=== PATIENT | female | born 1935 | race Caucasian/White ===

== ENCOUNTER 2017-11-30 08:46 | Observation (INO) | payer MEDICARE ==
[2017-11-30] MEDS: Albuterol-Ipratrop 3 mg / 0.5 (3 ml) UD IH SCH ×3 (09:45→10:35)
[2017-11-30] MEDS ORDERED: Albuterol-Ipratrop 3 mg / 0.5 (3 ml) UD ONE (10:17)
[2017-11-30 10:58] LABS: BASO % 0.7 % (0.0-2.0); EOS % 0.3 % (0.0-4.0); HEMOGLOBIN 11.4 g/dL (12.0-16.0); LYMPH # 0.9 K/uL (1.0-4.3); LYMPH % 12.4 % (20.0-40.0); MEAN CELL VOLUME 59.8 fl (81.0-99.0); MEAN CORPUSCULAR HEMOGLOBIN 18.6 pg (27.0-31.0); MEAN CORPUSCULAR HGB CONC 31.2 g/dL (33.0-37.0); MEAN PLATELET VOLUME 9.3 fl (7.2-11.7); MONO # 1.2 K/uL (0.0-0.8); MONO % 16.2 % (0.0-10.0); NEUT # 5.2 K/uL (1.8-7.0); NEUT % 70.4 % (50.0-75.0); NRBC % 0.2 % (0.0-0.0); RBC 6.12 Mil/uL (3.80-5.20); RED CELL DISTRIBUTION WIDTH 18.3 % (11.5-14.5); WHITE BLOOD COUNT 7.3 K/uL (4.8-10.8)
[2017-11-30 11:11] LABS: BLOOD UREA NITROGEN 18 mg/dl (7-17); GFR AFRICAN-AMERICAN > 60; GFR NON-AFRICAN AMERICAN 60; MAGNESIUM 2.2 MG/DL (1.6-2.3)
--- NOTE | 2017-11-30 11:13 | RAD ---
HISTORY: Cough. Rule out pneumonia COMPARISON: No prior study available comparison FINDINGS: LUNGS: Ill-defined perihilar opacity with left lower lobe atelectasis and/or scarring changes however developing infiltrates could be excluded with followup radiographs. . . PLEURA: No significant pleural effusion identified, no pneumothorax apparent. CARDIOVASCULAR: Normal. OSSEOUS STRUCTURES: No significant abnormalities. VISUALIZED UPPER ABDOMEN: Normal. OTHER FINDINGS: None. IMPRESSION: Ill-defined perihilar opacity with left lower lobe atelectasis and/or scarring changes however developing infiltrates could be excluded with followup radiographs. . .
[2017-11-30 11:23] LABS: B-TYPE NATRIURETIC PEPTIDE 2910 pg/ml (0-900)
--- NOTE | 2017-11-30 12:24 | ED PDOC ---
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 Patient reports symptoms are worse with exertion. Patient reports nasal congestion, but no fever. Patient was recently discharged (From [facility]) on the 28 of November for Pneumonia. Patient was in Subacute Rehab for 1 and a half hours, but reports symptoms have been getting worse. PMD: Isaiah Mendoza Past Medical History Vital Signs: Last Vital Signs Temp 99.2 F 11/30/17 16:16 Pulse 58 L 11/30/17 17:22 Resp 20 11/30/17 16:16 BP 105/59 L 11/30/17 16:16 Pulse Ox 95 11/30/17 17:22 - Medical History PMH: HTN Denies: Chronic Kidney Disease - Family History Family History: States: No Known Family Hx - Immunization History Hx Tetanus Toxoid Vaccination: No Hx Influenza Vaccination: No Hx Pneumococcal Vaccination: No - Home Medications Home Medications: Ambulatory Orders Medication Instructions Recorded ALPRAZolam [Xanax] 0.25 mg PO BID PRN tab 11/27/17 Albuterol/Ipratropium [Duoneb 3 3 ml INH RQ6 neb 11/27/17 mg/0.5 mg (3 ml) UD] Azithromycin [Zithromax] 500 mg PO DAILY #5 tablet 11/27/17 Clopidogrel [Plavix] 75 mg PO DAILY tab 11/27/17 Famotidine [Pepcid] 20 mg PO BID tab 11/27/17 Ferrous Sulfate [Feosol] 325 mg PO BID tab 11/27/17 Montelukast [Singulair] 10 mg PO HS tab 11/27/17 amLODIPine [Norvasc] 10 mg PO DAILY tab 11/27/17 cefTRIAXone [Rocephin] 1 gm IVPB DAILY #5 vial 11/27/17 guaiFENesin/Dextromethorphan 10 ml PO Q6H udc 11/27/17 [Robitussin DM] Atenolol [Tenormin] 100 mg PO BID 11/30/17 - Allergies Allergies/Adverse Reactions: Allergies Allergy/AdvReac Type Severity Reaction Status Date / Time No Known Allergies Allergy Verified 11/30/17 08:59 - Laboratory Results Result Diagrams: 11/30/17 10:50 11/30/17 10:50 - ECG ECG: Positive for: Interpreted By Me, Viewed By Me ECG Rhythm: Positive for: Sinus Bradycardia (with Sinus Arrhythmia) Rate: 58 O2 Sat by Pulse Oximetry: 95 (RA) Medical Decision Making Medical Decision Making: Time: 09:42 Plan: - EKG - B-Type Natriuretic Peptide - BMP - Mangesium - Troponin I - CBC - Portable Chest X-Ray - Duoneb 3 mg/0.5 mg (3 ml) UD - Zofran Inj - Blood Culture - Nebulizer Treatment - Peak Flow Pre/Post Treatment - Influenza A B - Urinalysis Time: 11:11 Chest X-Ray FINDINGS: IMPRESSION: Ill-defined perihilar opacity with left lower lobe atelectasis and/or scarring changes however developing infiltrates could be excluded with followup radiographs. . . Time: 12:25 Patient failed outpatient treatment for COPD. WBC nl. She never completed her subacute rehab. Dr. Caldwell will admit her under his service for Dr. Mendoza for COPD Exacerbation Scribe Attestation: Documented by Garry Zamora, acting as a scribe for Nicho Nolasco DO Provider Scribe Attestation: All medical record entries made by the Scribe were at my direction and personally dictated by me. I have reviewed the chart and agree that the record accurately reflects my personal performance of the history, physical exam, medical decision making, and the department course for this patient. I have also personally directed, reviewed, and agree with the discharge instructions and disposition. Disposition - Clinical Impression Clinical Impression: COPD (chronic obstructive pulmonary disease) - Patient ED Disposition Is Patient to be Admitted: Yes Discussed With Dr.: Jeff Caldwell - Disposition Disposition Time: 12:25 Condition: FAIR - POA Present On Arrival: None
--- NOTE | 2017-11-30 13:55 | CP.PCM.HP ---
Past Patient History - Past Medical History & Family History Past Medical History?: Yes - Past Social History Smoking Status: Former Smoker - CARDIAC Hx Hypertension: Yes - PULMONARY Hx Respiratory Disorders: No - NEUROLOGICAL HX Cerebrovascular Accident: Yes - HEENT Hx HEENT Problems: No - RENAL Hx Chronic Kidney Disease: No - ENDOCRINE/METABOLIC Hx Endocrine Disorders: No - HEMATOLOGICAL/ONCOLOGICAL Hx Blood Disorders: No - INTEGUMENTARY Hx Dermatological Problems: No - MUSCULOSKELETAL/RHEUMATOLOGICAL Hx Musculoskeletal Disorders: No Hx Falls: No - GASTROINTESTINAL Hx Gastrointestinal Disorders: No - GENITOURINARY/GYNECOLOGICAL Hx Genitourinary Disorders: No - PSYCHIATRIC Hx Substance Use: No - SURGICAL HISTORY Hx Surgeries: No - ANESTHESIA Hx Anesthesia: No Meds Allergies/Adverse Reactions: Allergies Allergy/AdvReac Type Severity Reaction Status Date / Time No Known Allergies Allergy Verified 11/30/17 08:59 Results - Vital Signs Recent Vital Signs: Last Vital Signs Temp 98.6 F 11/30/17 08:54 Pulse 76 11/30/17 08:54 Resp 20 11/30/17 08:54 BP 157/65 H 11/30/17 08:54 Pulse Ox 95 11/30/17 13:11 - Labs Result Diagrams: 11/30/17 10:50 11/30/17 10:50 Labs: Laboratory Results - last 24 hr 11/30/17 11/30/17 11/30/17 10:50 10:50 10:50 WBC 7.3 RBC 6.12 H Hgb 11.4 L Hct 36.6 MCV 59.8 L MCH 18.6 L MCHC 31.2 L RDW 18.3 H Plt Count 211 MPV 9.3 Neut % (Auto) 70.4 Lymph % (Auto) 12.4 L [place] % (Auto) 16.2 H Eos % (Auto) 0.3 Baso % (Auto) 0.7 Neut # (Auto) 5.2 Lymph # (Auto) 0.9 L [place] # (Auto) 1.2 H Eos # (Auto) 0.0 Baso # (Auto) 0.0 Sodium 141 Potassium 4.2 Chloride 100 Carbon Dioxide 32 H Anion Gap 13 BUN 18 H Creatinine 0.9 Est GFR ( Amer) > 60 Est GFR (Non-Af Amer) 60 Random Glucose 109 H Calcium 9.0 Magnesium 2.2 Troponin I 0.0140 NT-Pro-B Natriuret Pep 2910 H Influenza Typ A,B (EIA) Negative for flu a/b
--- NOTE | 2017-11-30 16:28 | CP.PCM.HP ---
History of Present Illness - History of Present Illness History of Present Illness: 82 yo female with history of HTN, Severe Aortic Stenosis and COPD admitted at [facility] on 11/23/2017 because of LLL Pneumonia. Patient was initially seen by PMD as outpatient because of coughing of 1 week duration. CXray showed LLL infiltrate. She was sent to [facility] and was managed with IV antibiotics. Patient improved and was sent to [facility] for continuation of management on 11/29/2017. Less than 2 hrs after arriving in the custodial patient signed out AMA. Patient called PMD today claiming she still doesn't feel good and was sent here for admission. Still complaining of cough which had now became productive with white sputum. Denied SOB or chest pain. Present on Admission - Present on Admission Any Indicators Present on Admission: No History of DVT/PE: No History of Uncontrolled Diabetes: No Urinary Catheter: No Decubitus Ulcer Present: No Review of Systems - Review of Systems All systems: reviewed and no additional remarkable complaints except (aside from those mentioned above 12 point system review were negative by me) Past Patient History - Tetanus Immunizations Tetanus Immunization: Unknown - Past Medical History & Family History Past Medical History?: Yes - Past Social History Smoking Status: Former Smoker Alcohol: None Drugs: Denies Home Situation {Lives}: Alone - CARDIAC Hx Cardiac Disorders: Yes Hx Hypertension: Yes Other/Comment: severe aortic stenosis - PULMONARY Hx Respiratory Disorders: Yes Hx Chronic Obstructive Pulmonary Disease (COPD): Yes Hx Pneumonia: Yes - NEUROLOGICAL HX Cerebrovascular Accident: Yes - HEENT Hx HEENT Problems: No - RENAL Hx Chronic Kidney Disease: No - ENDOCRINE/METABOLIC Hx Endocrine Disorders: No - HEMATOLOGICAL/ONCOLOGICAL Hx Blood Disorders: No - INTEGUMENTARY Hx Dermatological Problems: No - MUSCULOSKELETAL/RHEUMATOLOGICAL Hx Musculoskeletal Disorders: No - GASTROINTESTINAL Hx Gastrointestinal Disorders: No - GENITOURINARY/GYNECOLOGICAL Hx Genitourinary Disorders: No - PSYCHIATRIC Hx Substance Use: No - SURGICAL HISTORY Hx Surgeries: No - ANESTHESIA Hx Anesthesia: No Meds Allergies/Adverse Reactions: Allergies Allergy/AdvReac Type Severity Reaction Status Date / Time No Known Allergies Allergy Verified 11/30/17 08:59 Physical Exam - Constitutional Appears: No Acute Distress - Head Exam Head Exam: ATRAUMATIC - Eye Exam Eye Exam: absent: Scleral icterus - ENT Exam ENT Exam: Mucous Membranes Moist - Neck Exam Neck exam: Negative for: Meningismus - Respiratory Exam Respiratory Exam: absent: Rhonchi, Wheezes, Respiratory Distress - Cardiovascular Exam Cardiovascular Exam: REGULAR RHYTHM, +S1, +S2 - GI/Abdominal Exam GI & Abdominal Exam: Soft. absent: Tenderness - Rectal Exam Rectal Exam: Deferred - Back Exam Back exam: absent: tenderness - Neurological Exam Neurological exam: Alert, Oriented x3 - Psychiatric Exam Psychiatric exam: Normal Affect - Skin Skin Exam: Dry, Intact Results - Vital Signs Recent Vital Signs: Last Vital Signs Temp 98.1 F 11/30/17 14:10 Pulse 78 11/30/17 14:10 Resp 18 11/30/17 14:10 BP 134/76 11/30/17 14:10 Pulse Ox 96 11/30/17 14:10 - Labs Result Diagrams: 11/30/17 10:50 11/30/17 10:50 Labs: Laboratory Results - last 24 hr 11/30/17 11/30/17 11/30/17 10:50 10:50 10:50 WBC 7.3 RBC 6.12 H Hgb 11.4 L Hct 36.6 MCV 59.8 L MCH 18.6 L MCHC 31.2 L RDW 18.3 H Plt Count 211 MPV 9.3 Neut % (Auto) 70.4 Lymph % (Auto) 12.4 L [place] % (Auto) 16.2 H Eos % (Auto) 0.3 Baso % (Auto) 0.7 Neut # (Auto) 5.2 Lymph # (Auto) 0.9 L [place] # (Auto) 1.2 H Eos # (Auto) 0.0 Baso # (Auto) 0.0 Sodium 141 Potassium 4.2 Chloride 100 Carbon Dioxide 32 H Anion Gap 13 BUN 18 H Creatinine 0.9 Est GFR ( Amer) > 60 Est GFR (Non-Af Amer) 60 Random Glucose 109 H Calcium 9.0 Magnesium 2.2 Troponin I 0.0140 NT-Pro-B Natriuret Pep 2910 H Influenza Typ A,B (EIA) Negative for flu a/b Assessment & Plan - Assessment and Plan (Free Text) Assessment: 82 yo female with history of HTN, Severe Aortic Stenosis and COPD admitted at [facility] on 11/23/2017 because of LLL Pneumonia. Patient was initially seen by PMD as outpatient because of coughing of 1 week duration. CXray showed LLL infiltrate. She was sent to [facility] and was managed with IV antibiotics. Patient improved and was sent to [facility] for continuation of management on 11/29/2017. Less than 2 hrs after arriving in the custodial patient signed out AMA. Patient called PMD today claiming she still doesn't feel good and was sent here for admission. Still complaining of cough which had now became productive with white sputum. Denied SOB or chest pain. 1. LLL Pneumonia attending from [facility] recommended another 5 days of antibiotics continue Zithromax and Rocephin 2. COPD denied SOB at present, no wheezing Duoneb via nebulizer q 4hrs prn Montelukast 10mg PO HS Advair 1 puff q 12hrs 3. HTN BP stable continue Amlodipine 10mg PO daily and Atenolol 100mg PO BID 4. Severe Aortic Stenosis stable patient is being followed up by Dr Garcia and recommended outpatient cardiac cath 5. DVT prophylaxis Lovenox 40mg SC daily
[2017-11-30] MEDS: ATENOLOL 100 MG TAB PO SCH (17:29)
[2017-11-30] MEDS: guaiFENesin DM 200 mg-20 mg/10 ml UD PO SCH ×3 (17:30→22:00)
[2017-11-30] MEDS: Albuterol-Ipratrop 3 mg / 0.5 (3 ml) UD INH SCH (19:10)
[2017-11-30] MEDS: Fluticasone-Salmeterol 250-50mcg Diskus IH SCH (21:04)
[2017-12-01] MEDS: Albuterol-Ipratrop 3 mg / 0.5 (3 ml) UD INH SCH ×3 (01:37→13:15)
[2017-12-01] MEDS: guaiFENesin DM 200 mg-20 mg/10 ml UD PO SCH ×2 (04:52→11:46)
[2017-12-01 06:00] LABS: BLOOD UREA NITROGEN 20 mg/dl (7-17); CALCIUM 9.1 mg/dL (8.4-10.2); GFR AFRICAN-AMERICAN > 60; GFR NON-AFRICAN AMERICAN 53
[2017-12-01 06:44] LABS: BASO % 0.1 % (0.0-2.0); HEMOGLOBIN 10.9 g/dL (12.0-16.0); LYMPH # 0.4 K/uL (1.0-4.3); LYMPH % 4.9 % (20.0-40.0); MEAN CORPUSCULAR HGB CONC 31.6 g/dL (33.0-37.0); MEAN PLATELET VOLUME 9.2 fl (7.2-11.7); MONO # 0.4 K/uL (0.0-0.8); NEUT # 7.3 K/uL (1.8-7.0); NRBC % 0.3 % (0.0-0.0); PLATELET COUNT 175 K/uL (130-400); RBC 5.76 Mil/uL (3.80-5.20); RED CELL DISTRIBUTION WIDTH 18.1 % (11.5-14.5); WHITE BLOOD COUNT 8.1 K/uL (4.8-10.8)
--- NOTE | 2017-12-01 08:45 | CARD ---
APPROVED REPORT EKG Measurement Heart [id number] <Conclusion> Sinus bradycardia with marked sinus arrhythmia Otherwise normal ECG
[2017-12-01] MEDS ORDERED: cefTRIAXone (Rocephin) 1 gm Inj IVPB SCH (09:00)
[2017-12-01] MEDS ORDERED: Enoxaparin 40 mg Syringe SC SCH (09:00)
[2017-12-01] MEDS ORDERED: Pantoprazole 40 mg EC Tab PO SCH (09:00)
[2017-12-01 09:04] VITALS: BP 152/68; PULSE 74; RESP 20; TEMP 98.1; O2SAT 95
[2017-12-01] MEDS: Fluticasone-Salmeterol 250-50mcg Diskus IH SCH (09:50)
[2017-12-01 09:51] LABS: LYMPHOCYTE 5 % (20-50); MONOCYTE 3 % (0-10); NEUTROPHIL 92 % (42-75); TOTAL CELLS COUNTED 100
[2017-12-01] MEDS: ATENOLOL 100 MG TAB PO SCH (09:51)
[2017-12-01 09:52] LABS: PLATELET ESTIMATE NORMAL (NORMAL)
[2017-12-01 09:54] LABS: ANISOCYTOSIS SLIGHT; HYPOCHROMIC SLIGHT; MICROCYTOSIS MODERATE; OVALOCYTES SLIGHT; TARGET CELLS SLIGHT
[2017-12-01 10:01] LABS: LARGE PLATELETS PRESENT
--- NOTE | 2017-12-01 12:23 | CP.PCM.DIS ---
Provider - Provider Date of Admission: 11/30/17 12:25 Attending physician: Jeff Caldwell MD Time Spent in preparation of Discharge (in minutes): 25 Diagnosis - Discharge Diagnosis (1) Pneumonia Status: Acute Comment: Pt denied SOB and has been breathing comfortably. continue Zithromax 500mg PO daily for another 5 days (2) COPD (chronic obstructive pulmonary disease) Status: Chronic Comment: continue Montelukast, Advair amd Duoneb (3) HTN (hypertension) Status: Acute Comment: BP stable. continue Amlodipine and Atenolol (4) Aortic stenosis Status: Acute Comment: follow up with Dr Garcia [facility] Course - Lab Results Lab Results: Micro Results 11/30/17 10:50 Blood-Venous Blood Culture - Preliminary NO GROWTH AFTER 24 HOURS Most Recent Lab Values WBC 8.1 K/uL (4.8-10.8) 12/01/17 05:35 RBC 5.76 Mil/uL (3.80-5.20) H 12/01/17 05:35 Hgb 10.9 g/dL (12.0-16.0) L 12/01/17 05:35 Hct 34.6 % (34.0-47.0) 12/01/17 05:35 MCV 60.0 fl (81.0-99.0) L 12/01/17 05:35 MCH 19.0 pg (27.0-31.0) L 12/01/17 05:35 MCHC 31.6 g/dL (33.0-37.0) L 12/01/17 05:35 RDW 18.1 % (11.5-14.5) H 12/01/17 05:35 Plt Count 175 K/uL (130-400) 12/01/17 05:35 MPV 9.2 fl (7.2-11.7) 12/01/17 05:35 Neut % (Auto) 90.0 % (50.0-75.0) H 12/01/17 05:35 Lymph % (Auto) 4.9 % (20.0-40.0) L 12/01/17 05:35 [place] % (Auto) 5.0 % (0.0-10.0) 12/01/17 05:35 Eos % (Auto) 0.0 % (0.0-4.0) 12/01/17 05:35 Baso % (Auto) 0.1 % (0.0-2.0) 12/01/17 05:35 Neut # (Auto) 7.3 K/uL (1.8-7.0) H 12/01/17 05:35 Lymph # (Auto) 0.4 K/uL (1.0-4.3) L 12/01/17 05:35 [place] # (Auto) 0.4 K/uL (0.0-0.8) 12/01/17 05:35 Eos # (Auto) 0.0 K/uL (0.0-0.7) 12/01/17 05:35 Baso # (Auto) 0.0 K/uL (0.0-0.2) 12/01/17 05:35 Neutrophils % (Manual) 92 % (42-75) H 12/01/17 05:35 Lymphocytes % (Manual) 5 % (20-50) L 12/01/17 05:35 Monocytes % (Manual) 3 % (0-10) 12/01/17 05:35 Platelet Estimate Normal (NORMAL) 12/01/17 05:35 Large Platelets Present 12/01/17 05:35 Hypochromasia (manual) Slight 12/01/17 05:35 Anisocytosis (manual) Slight 12/01/17 05:35 Microcytosis (manual) Moderate 12/01/17 05:35 Target Cells Slight 12/01/17 05:35 Ovalocytes Slight 12/01/17 05:35 Sodium 143 mmol/l (132-148) 12/01/17 05:35 Potassium 4.2 MMOL/L (3.6-5.0) 12/01/17 05:35 Chloride 100 mmol/L (98-107) 12/01/17 05:35 Carbon Dioxide 33 mmol/L (22-30) H 12/01/17 05:35 Anion Gap 14 (10-20) 12/01/17 05:35 BUN 20 mg/dl (7-17) H 12/01/17 05:35 Creatinine 1.0 mg/dl (0.7-1.2) 12/01/17 05:35 Est GFR ( Amer) > 60 12/01/17 05:35 Est GFR (Non-Af Amer) 53 12/01/17 05:35 Random Glucose 143 mg/dL (65-105) H 12/01/17 05:35 Calcium 9.1 mg/dL (8.4-10.2) 12/01/17 05:35 Magnesium 2.2 MG/DL (1.6-2.3) 11/30/17 10:50 Troponin I 0.0140 ng/mL (0.00-0.120) 11/30/17 10:50 NT-Pro-B Natriuret Pep 2910 pg/ml (0-900) H 11/30/17 10:50 Influenza Typ A,B (EIA) Negative for flu a/b (NEGATIVE) 11/30/17 10:50 - Hospital Course Hospital Course: 82 yo female with history of HTN, Severe Aortic Stenosis and COPD admitted at [facility] on 11/23/2017 because of LLL Pneumonia. Patient was initially seen by PMD as outpatient because of coughing of 1 week duration. CXray showed LLL infiltrate. She was sent to [facility] and was managed with IV antibiotics. Patient improved and was sent to [facility] for continuation of IV antibiotics on 11/29/2017. Less than 2 hrs after arriving, patient signed out AMA. Patient called PMD claiming she still didn't feel good so she was sent here for admission. Today she felt better with her condition improved .and agreed to continue PO antibiotics at home. Discharge Exam - Head Exam Head Exam: ATRAUMATIC - Eye Exam Eye Exam: absent: Scleral icterus - ENT Exam ENT Exam: Mucous Membranes Moist - Respiratory Exam Respiratory Exam: absent: Rales, Rhonchi, Wheezes, Respiratory Distress - Cardiovascular Exam Cardiovascular Exam: REGULAR RHYTHM, +S1, +S2 - GI/Abdominal Exam GI & Abdominal Exam: Soft. absent: Tenderness - Rectal Exam Rectal Exam: Deferred - Back Exam Back exam: absent: tenderness - Neurological Exam Neurological exam: Alert, Oriented x3 - Psychiatric Exam Psychiatric exam: Normal Affect - Skin Skin Exam: Dry, Intact Discharge Plan - Discharge Medications Prescriptions: Azithromycin [Zithromax] 500 mg PO DAILY #5 tablet - Follow Up Plan Condition: FAIR Disposition: HOME/ ROUTINE Additional Instructions: continue Zithromax 500mg PO daily for another 5 days follow up with Dr Mendoza in 2 weeks
== END 2017-12-01 14:37 | disposition home or self-care (01) ==
LOC: H.ER 08:46 → H.ERHOLD 12:25 → H.MEDSURG1 14:22
DX: J44.1 Chronic obstructive pulmonary disease with (acute) exacerbation (principal); J44.0 Chronic obstructive pulmonary disease with (acute) lower respiratory infection; J18.9 Pneumonia, unspecified organism; I35.0 Nonrheumatic aortic (valve) stenosis; I10 Essential (primary) hypertension; Z86.73 Personal history of transient ischemic attack (TIA), and cerebral infarction without residual deficits; Z79.02 Long term (current) use of antithrombotics/antiplatelets; Z87.01 Personal history of pneumonia (recurrent); Z87.891 Personal history of nicotine dependence
CPT/HCPCS: 36415; 71045; 80048; 83735; 83880; 84484; 85025; 87040; 87804; 93005; 94640; 96374; 97162; 99283; G0378; G8978; G8979; J0696; J1650; J2405; J2930